=== PATIENT | male | born 1950 | race Caucasian/White ===

== ENCOUNTER 2018-09-01 07:05 | Emergency (ER) | payer BC ==
[2018-09-01 07:35] VITALS: BP 144/99; PULSE 74; TEMP 97.7; BMI 30.2
== END 2018-09-01 08:00 | disposition left against medical advice (07) ==
LOC: JER 07:05
DX: Z53.21 Procedure and treatment not carried out due to patient leaving prior to being seen by health care provider (principal)
CPT/HCPCS: 99281-25